=== PATIENT | male | born 1965 | race Caucasian/White ===

== ENCOUNTER 2020-12-30 12:14 | Emergency (ER) | payer OTHER ==
[~2020-12-30] VITALS: Ht 175.3 cm; Wt 83.9 kg
[2020-12-30] MEDS ORDERED: ZOFRAN ODT4 MG DISSOLVE (13:34)
[2020-12-30] MEDS ORDERED: ZPAK PO (13:34)
[2020-12-30] MEDS ORDERED: DEXAMETHASONE 44 M1 PO (13:34)
[2020-12-30 13:45] VITALS: BP 124/68
== END 2020-12-30 13:46 | disposition home or self-care (01) ==
LOC: M.ERS 12:14
DX: U07.1 COVID-19 (principal)